=== PATIENT | male | born 1990 | race African-American/Black ===

== ENCOUNTER 2018-06-29 05:47 | Day surgery (SDC) | payer OTHER ==
[~2018-06-29] VITALS: Ht 182.9 cm; Wt 128.4 kg
[2018-06-29] MEDS ORDERED: IBUPROFEN600 MG PO (06:59)
[2018-06-29 07:11] VITALS: BP 130/80; Ht 182.9 cm; Wt 128.4 kg
--- NOTE | 2018-06-29 11:44 | OP ---
PATIENT NAME: MOISES FOURNIER MEDICAL RECORD: [id number] :88 LOCATION:[facility] AD[facility] DATE: SURGEON: KARL WALDEN DO DATE OF OPERATION: 06/29/2018 PROCEDURE PERFORMED: Left shoulder arthroscopy with soft tissue Bankart repair and subacromial decompression. PREOPERATIVE DIAGNOSIS: Left shoulder instability with partial rotator cuff tear and subacromial impingement. POSTOPERATIVE DIAGNOSES: Left shoulder instability with partial rotator cuff tear and subacromial impingement. INDICATIONS: Mr. Fournier is a 27-year-old male who fell approximately 3 years ago, he said on to his shoulder. He does not recall a dislocation of the shoulder, but he has had pain ever since. He points to the front of his shoulders where the pain is. He has positive Hawkin sign also, positive apprehension test. He had an MRI, which did show a partial rotator cuff tear, but not full thickness. It was not an MR arthrogram, so the labrum was not easily evaluated. Due to his symptoms, I told him that we would look at the rotator cuff and possibly fix it as it was greater than 50% torn and do a subacromial decompression also. Due to his apprehension, I would look closely at the labrum to see if he needed a soft tissue Bankart. He was okay with that and signed the consent. He was also aware of the risks including stiffness in the shoulder, recurrent instability and pain and infection. SURGEON: Karl Walden DO DESCRIPTION OF PROCEDURE: The patient received a block by anesthesia in the preoperative area, taken to the operative suite, laid in the right lateral decubitus position with the left shoulder up, given 900 mg clindamycin preoperatively. Left shoulder was prepped and draped in sterile fashion. A timeout was performed, everyone was in agreement as to the correct side, site, patient and procedure. The procedure then began with the 18-gauge spinal needle inserted through the posterior portal into the shoulder joint insufflating with 60 mL of normal saline. Once the shoulder was insufflated, the 11 blade scalpel was used to establish a portal and trocar was entered in the shoulder. Once his shoulder was entered, it was immediately noted that the humerus was subluxed anteriorly and inferiorly. We took some of the weight off too and it did not affect it noting that he likely had that instability and seeing that the humerus was subluxed so far anteriorly, I decided to do a soft tissue Bankart. The 2 anterior portals were then established and trocar was entered in. The hook was used to go through first inferiorly through the labrum and some of the soft tissue, bringing it superior and up onto the glenoid. The labral tape was then ran through the nitinol wire that was fished out and then a 2.9 PushLock was put in just anterior to where it was through the labrum and the capsule. This brought up a nice bumper inferiorly and anteriorly moving the humerus more centered on the glenoid. One more anchor was then put in. The same process was done. The first anchor was at approximately the 4:30 position. The second one was about the 2:30 position. This formed a nice bumper on the glenoid centering the humeral head on the glenoid. The rotator cuff was then checked and it was seen to have very few fibers torn on the articular surface, it was in good shape. The supraspinatus, infraspinatus, and the subscapularis were inspected and seen to be in good repair other than what was noted. The scope was then OPERATIVE REPORT [id number] MOISES FOURNIER removed and put into the subacromial space. There was quite a bit of bursa noted there. A bursectomy was done and then a type 2 acromion was seen. This was then shaved down. Any bleeders were coagulated. Then, the rest of the bursa was removed and the rotator cuff was inspected on the bursal side and no tears were seen on it. The water was then turned off and suction turned on. Excess water was removed from the shoulder and the lateral portal was then established prior to all that work in the subacromial space, of note, with an 18-gauge spinal needle and 11-blade scalpel. The 4 portal sites were then closed with 4-0 Monocryl in inverted interrupted fashion and Dermabond glue was placed on them. The patient was dressed and then placed in a sling, awakened and taken to recovery in stable condition. BLOOD LOSS: Minimal. COMPLICATIONS: None. TRANSINT:[id number] Voice Confirmation ID: [id number] DOCUMENT ID: [id number] KARL WALDEN DO at 1144 CC: [id number] DICTATION DATE: 06/29/18 1055 LIFE TRAINER: 06/29/18 1128 REG [facility] [address] [id number]
--- NOTE | 2018-06-29 12:30 | NUR ---
PATIENT AMBULATES TO BATHROOM WITH STAND-BY ASSIST WITHOUT DIZZINESS OR UNSTEADINESS. VOIDS LARGE AMOUNT IN TOILET WITHOUT DIFFICULTY. GUARD ASSISTING PATIENT TO DRESS IN ADC CLOTHING
--- NOTE | 2018-06-29 12:44 | NUR ---
DISCHARGED VIA WHEELCHAIR TO [facility] WITH GUARDS
== END 2018-06-29 12:44 ==
LOC: D.OPS 05:47
PROVIDERS: ATTEND Orthopaedic Surgery
DX: M25.312 Other instability, left shoulder (principal); M75.112 Incomplete rotator cuff tear or rupture of left shoulder, not specified as traumatic; M75.42 Impingement syndrome of left shoulder; Z01.812 Encounter for preprocedural laboratory examination